=== PATIENT | male | born 1980 | race Two or more races ===

== ENCOUNTER 2016-07-07 13:28 | Emergency (ER) | payer OTHER ==
[~2016-07-07] VITALS: Ht 172.7 cm; Wt 86.2 kg
[2016-07-07] MEDS ORDERED: TYLENOL EXTRA500 MG ORAL (13:40)
[2016-07-07 13:51] VITALS: BP 119/77
--- NOTE | 2016-07-07 14:20 | Diagnostic Imaging Report ---
Indications: Right wrist trauma, pain Technique: 3 views right wrist. Findings: Comparison: Right hand radiographs 02/15/05 No fracture, dislocation, joint space widening , surrounding soft tissue swelling/foreign body/other abnormality, or other acute changes are identified. Expansile lucent lesion is again noted in the proximal diaphysis of the fourth proximal phalanx, unchanged. IMPRESSION: No evidence of acute injury. Stable lucent lesion fourth proximal phalanx most compatible with enchondroma
[2016-07-07] MEDS ORDERED: TRAMADOL HCL50 MG ORAL (15:10)
[2016-07-07] MEDS ORDERED: IBUPROFEN600 MG ORAL (15:10)
[2016-07-07 15:21] VITALS: BP 122/76
[2016-07-07 15:23] VITALS: BP 122/76
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
== END 2016-07-07 15:25 | disposition home or self-care (01) ==
LOC: EMR 14:15
DX: S60.211A Contusion of right wrist, initial encounter (principal); V13.4XXA Pedal cycle driver injured in collision with car, pick-up truck or van in traffic accident, initial encounter; Y93.55 Activity, bike riding; Y92.9 Unspecified place or not applicable; M89.9 Disorder of bone, unspecified; F17.200 Nicotine dependence, unspecified, uncomplicated
CPT/HCPCS: 29260; 99284

== ENCOUNTER 2016-08-31 15:25 | Emergency (ER) | payer OTHER ==
[~2016-08-31] VITALS: Ht 175.3 cm; Wt 88.5 kg
[~2016-08-31 15:25] MED LIST: IBUPROFEN600 MG ORAL; TRAMADOL HCL50 MG ORAL; TYLENOL EXTRA500 MG ORAL
[2016-08-31 15:57] VITALS: BP 137/81
--- NOTE | 2016-08-31 15:59 | Emergency Room Report ---
History of Present Illness General Chief Complaint: Upper Extremity Injury Source: Patient Present Illness HPI Patient is a 36-year-old male presented after having increased right upper extremity swelling. Patient was noted to have a fall approximately one month ago. Patient states that he's been having gradually increasing swelling to the posterior of his right elbow . he recently started a job. Patient is right- hand dominant. He denies any pain. He denies any fever. He denies any numbness or weakness to his extremity. Allergies: Coded Allergies: No Known Allergies (Unverified , 07/07/16) Patient History Past Medical History: see triage record Reviewed Nursing Documentation: PMH: Agreed, PSxH: Agreed Nursing Documentation-PMH Past Medical History: No Stated History Review of Systems All Other Systems: negative except mentioned in HPI Physical Exam Vital Signs Date Time Temp Pulse Resp B/P Pulse Ox O2 Delivery O2 Flow Rate FiO2 08/31/16 15:37 98.1 94 14 134/78 99 Room Air Sp02 EP Interpretation: reviewed, normal General Appearance: normal inspection, well appearing, no apparent distress, alert, GCS 15 Head: atraumatic ENT: normal ENT inspection, hearing grossly normal, normal voice Neck: normal inspection, full range of motion, supple, no bony tend Respiratory: normal inspection, lungs clear, normal breath sounds, no respiratory distress, no retraction, no wheezing Cardiovascular #1: regular rate, rhythm, no edema Gastrointestinal: normal inspection, normal bowel sounds, non tender, soft, no guarding, no hernia Genitourinary: no CVA tenderness Musculoskeletal: normal inspection, back normal, normal range of motion, other - bursal swelling to right elbow Neurologic: normal inspection, alert, oriented x3, responsive, nurse wound III-XII nml as tested, speech normal Psychiatric: normal inspection, judgement/insight normal, mood/affect normal Skin: normal inspection, normal color, no rash Medical Decision Making Diagnostic Impression: Primary Impression: Bursitis of elbow ER Course The patient presented for elbow swelling. Differential diagnosis included was not limited to hemarthrosis, bursitis, cellulitis abscess among others.Because of complexity of patient's case imaging studies were ordered.The patient declined x-ray imaging. Patient was placed in an Danny wrap and advised to followup with his primary care physician for further evaluation as needed. He is advised to use nonsteroidal anti-inflammatory medications. Last Vital Signs Date Time Temp Pulse Resp B/P Pulse Ox O2 Delivery O2 Flow Rate FiO2 08/31/16 15:37 98.1 94 14 134/78 99 Room Air Status: improved Disposition: HOME, SELF-CARE Condition: Stable Trevon Pinedo Aug 31, 2016 15:59
[2016-08-31] MEDS ORDERED: IBUPROFEN600 MG ORAL (16:19)
[2016-08-31 16:26] VITALS: BP 137/81
== END 2016-08-31 16:28 | disposition home or self-care (01) ==
LOC: EMR 16:05
DX: M70.31 Other bursitis of elbow, right elbow (principal)
CPT/HCPCS: 29530; 99283